=== PATIENT | female | born 1975 | race Native Hawaiian/Other Pacific Islander ===

== ENCOUNTER 2016-04-05 15:01 | Emergency (ER) | payer OTHER ==
[~2016-04-05] VITALS: Ht 175.3 cm; Wt 63.5 kg
[2016-04-05 17:35] LABS: PLATELET COUNT 362 K/uL (152-353)
[2016-04-05 17:58] LABS: POTASSIUM 2.8 mmol/L (3.6-5.2); SODIUM 133 mmol/L (136-145)
[2016-04-05 19:45] VITALS: BP 145/92; TEMP 98.6
== END 2016-04-05 17:32 | disposition home or self-care (01) ==
LOC: ED 15:01
PROVIDERS: Specialist
DX: R51 Headache (principal); E87.6 Hypokalemia
CPT/HCPCS: 80048; 85027; 96361; 96374; 96375; 96376; 99283; J1200; J1885; J2550